=== PATIENT | female | born 1960 | race African-American/Black ===

== ENCOUNTER 2018-11-26 09:30 | Emergency (ER) | payer OTHER ==
[~2018-11-26] VITALS: Ht 170.2 cm; Wt 133.4 kg
[~2018-11-26 09:30] MED LIST: LOSA25TA3; TRAM50TA2; WARF5TAB77
--- NOTE | 2018-11-26 09:57 | NUR ---
equity trader at bedside for xray.
[2018-11-26 10:38] VITALS: BP 152/91
--- NOTE | 2018-11-26 11:17 | NUR ---
Patient discharged to home in stable condition. Written and verbal after care instructions given. Patient verbalizes understanding of instruction.
== END 2018-11-26 11:18 | disposition home or self-care (01) ==
LOC: ER 09:32
DX: S39.012A Strain of muscle, fascia and tendon of lower back, initial encounter (principal); G51.0 Bell's palsy; I10 Essential (primary) hypertension; G43.909 Migraine, unspecified, not intractable, without status migrainosus; Z79.01 Long term (current) use of anticoagulants; V49.49XA Driver injured in collision with other motor vehicles in traffic accident, initial encounter; Y93.89 Activity, other specified; Y92.410 Unspecified street and highway as the place of occurrence of the external cause; Y99.8 Other external cause status
CPT/HCPCS: 72110-TC

== ENCOUNTER 2024-08-28 17:03 | Emergency (ER) | payer OTHER ==
[~2024-08-28] VITALS: Ht 172.7 cm; Wt 122.5 kg
[~2024-08-28 17:03] MED LIST changes: +LOSA100T31 PO; +METF-440 PO; +METO25TA20 PO; +WARF5TAB; -WARF5TAB77
[2024-08-28 17:38] LABS: BASOPHILS # (AUTO) 0.1 K/uL (0.0-0.2); BASOPHILS % (AUTO) 2.1 % (0.0-2.0); EOSINOPHILS # (AUTO) 0.1 K/uL (0.0-0.7); EOSINOPHILS % (AUTO) 1.6 % (0.0-6.0); HEMATOCRIT 39 % (33-45); HEMOGLOBIN 13.1 g/dL (11.5-14.8); LYMPHOCYTES % (AUTO) 28.1 % (20.0-44.0); MEAN CORPUSCULAR HEMOGLOBIN 31 PG (26.0-33.0); MEAN CORPUSCULAR HGB CONC 34 g/dl (31.0-36.0); MEAN CORPUSCULAR VOLUME 92 fL (82-100); MONOCYTES # (AUTO) 0.4 K/uL (0.1-1.30); MONOCYTES % (AUTO) 6.2 % (2.0-12.0); NEUTROPHILS # (AUTO) 4.5 K/uL (1.8-8.9); PLATELET COUNT (AUTO) 250 K/uL (150-450); RED BLOOD CELL COUNT(AUTO) 4.21 MIL/uL (4.0-5.2); RED CELL DISTRIBUTION WIDTH 13.6 % (11.5-15.0); WHITE BLOOD COUNT (AUTO) 7.3 K/uL (4.3-11.0)
[2024-08-28 18:01] LABS: NT-PRO BNP 63 pg/mL (0-125)
[2024-08-28 18:10] LABS: ALBUMIN 3.6 g/dL (3.4-5.0); BILIRUBIN,DIRECT 0.2 mg/dL (0.0-0.2); BILIRUBIN,TOTAL 0.6 mg/dL (0.2-1.0); CALCIUM, SERUM 10.2 mg/dL (8.5-10.1); CREATININE 1.1 mg/dL (0.6-1.3); POTASSIUM 3.7 mmol/L (3.5-5.1); TOTAL PROTEIN, SERUM 8.2 g/dL (6.4-8.2)
[2024-08-28] MEDS ORDERED: AMLO-212 PO (18:10)
[2024-08-28] MEDS ORDERED: ATOR40TA PO (18:10)
[2024-08-28] MEDS ORDERED: FLUT16SP BNOSTRILS (18:10)
[2024-08-28] MEDS ORDERED: LOSA25TA27 PO (18:10)
[2024-08-28] MEDS ORDERED: CT SWABBABLE VALVE TRANS SET 1 EA INFUS.SET MC ONE (18:25)
[2024-08-28] MEDS ORDERED: IV NS 0.9% 250 ML IV ONE (18:25)
[2024-08-28] MEDS ORDERED: IOHEXOL-350 100 ML VIAL IV ONE (18:25)
[2024-08-28] MEDS ORDERED: ONDANSETRON HCL/PF 4 MG/2 ML VIAL ONE (18:59)
[2024-08-28] MEDS ORDERED: MORPHINE SULFATE INJ 4 MG/ML DISP.SYRIN ONE (19:00)
[2024-08-28] MEDS: IV NS 0.9% 1,000 ML BAG IV ONE (19:06)
[2024-08-28] MEDS: MORPHINE SULFATE INJ 2 MG/ML DISP.SYRIN IV ONE (19:06)
[2024-08-28] MEDS: ONDANSETRON HCL/PF 4 MG/2 ML VIAL IV ONE (19:06)
[2024-08-28] MEDS ORDERED: FAMO-131 PO (20:40)
[2024-08-28] MEDS ORDERED: ONDA4TAB5 PO (20:40)
[2024-08-28 20:53] VITALS: BP 132/84; TEMP 98; O2SAT 96
== END 2024-08-28 20:53 | disposition home or self-care (01) ==
LOC: ER 17:05
DX: R07.89 Other chest pain (principal); R10.84 Generalized abdominal pain; R11.2 Nausea with vomiting, unspecified; I10 Essential (primary) hypertension; E11.9 Type 2 diabetes mellitus without complications; E78.5 Hyperlipidemia, unspecified; G89.29 Other chronic pain; M19.90 Unspecified osteoarthritis, unspecified site; Z79.84 Long term (current) use of oral hypoglycemic drugs; Z79.899 Other long term (current) drug therapy
CPT/HCPCS: 99285; 74174; 96374; 71275; 71045; 96361; 96375; 93005; 85025; 80048; 83690; 80076; 85378; 84484 ×2; 83880; J2270; J2405; J7030; J7050; Q9967; 36415